=== PATIENT | male | born 1985 ===

== ENCOUNTER 2018-03-05 21:56 | Emergency (ER) | payer OTHER ==
[2018-03-05 22:00] VITALS: BP 150/91; PULSE 72; RESP 18; TEMP 98.5; O2SAT 98
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
[2018-03-06] MEDS ORDERED: PROPARACAINE/FLUORESCEIN SOD 100 DROP/5 ML BOTTLE OD STA (00:33)
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
--- NOTE | 2018-03-06 10:04 | RAD ---
Date of service: 03/05/2018 PROCEDURE: Left Knee Radiographs. HISTORY: Pain. COMPARISON: None. FINDINGS: BONES: No acute fracture or destructive bony lesion identified. JOINTS: Normal. No osteoarthritis. JOINT EFFUSION: Small suprapatellar bursa effusion is identified. OTHER FINDINGS: None. IMPRESSION: Small suprapatellar bursa effusion identified. No acute fracture or dislocation left knee.
== END 2018-03-06 01:25 | disposition home or self-care (01) ==
LOC: H.ER 21:56
DX: M25.561 Pain in right knee (principal); M25.551 Pain in right hip; V03.00XA Pedestrian on foot injured in collision with car, pick-up truck or van in nontraffic accident, initial encounter